=== PATIENT | male | born 1940 | race Caucasian/White ===

== ENCOUNTER 2018-06-12 03:00 | Inpatient (IN) | payer MEDICARE, BC ==
[2018-06-12] MEDS ORDERED: DOPamine-D5W 1.6 MG/ML 250 ML (04:12)
[2018-06-12] MEDS: NORepinephrine 8MG/250 ML (PMX 250 ML IV (04:28)
[2018-06-12] MEDS: DOPamine-D5W 1.6 MG/ML 250 ML IV ×2 (04:29→08:18)
[2018-06-12] MEDS ORDERED: SOD CHLORIDE 0.9% 250 ML IV (04:30)
[2018-06-12] MEDS: NA BICARBONATE 8.4% 50 ML SYG IV (04:32)
[2018-06-12] MEDS: SOD CHLORIDE 0.9% 1,000 ML IV ×3 (04:48→06:58)
[2018-06-12 05:13] LABS: AADO2 Arterial 426.9 mmHg (7.0-24.0); Allen Test A; Arterial Base Excess -8.4 mmol/L (-3.0-3); Arterial Blood Gas Oxygen Sat 98.9 mmHG (95.0-100.0); Arterial COHb 0.3 % (0.0-3.0); Arterial Fraction of Oxyhgb 98.4 % (93.0-99.0); Arterial HCO3 21.3 mmol/L (22.0-26.0); Arterial MetHb 0.2 % (0.0-1.5); Arterial Total Hemglobin 9.6 g/dl (12.0-18.0); Arterial pCO2 69.2 mmhg (35-45); MODE VENT - AC; Site Left Radial
[2018-06-12] MEDS: SODIUM BICARBONATE (IV ADD) 100 MEQ in SOD CHLORIDE 0.45% 1,000 ML IV (05:19)
[2018-06-12 05:40] LABS: WHITE BLOOD COUNT 7.7 10^3/ul (4.8-10.8)
[2018-06-12 05:40] LABS: ABNORMAL IP MESSAGE 1; HEMATOCRIT 27.6 % (42.0-52.0); HEMOGLOBIN 8.2 g/dl (14.0-18.0); MEAN CORPUSCULAR HEMOGLOBIN 32.8 pg (29.0-33.0); MEAN CORPUSCULAR HGB CONC 29.7 g/dl (32.0-37.0); MEAN CORPUSCULAR VOLUME 110.4 fl (82.0-101.0); MEAN PLATELET VOLUME 12.4 fl (7.4-10.4); NUCLEATED RED BLOOD CELLS% 2.3 /100WBC (0.0-0.0); PLATELET COUNT 110 10^3/UL (140-415); POSITIVE DIFF @See below; RED CELL DISTRIBUTION WIDTH 24.3 % (11.5-14.5)
[2018-06-12 05:43] LABS: ADD MAN DIFF? YES
[2018-06-12 05:52] LABS: AMMONIA 367 umol/l (9-30)
[2018-06-12] MEDS: VASOPRESSIN 60 UNIT in DEXTROSE 5% 57 ML IV (06:01)
[2018-06-12 06:02] LABS: LACTIC ACID 12.6 mmol/L (0.5-2.0)
[2018-06-12] MEDS ORDERED: CA CHLORIDE 10% 10 ML SYRINGE (07:00)
[2018-06-12] MEDS ORDERED: EPINEPHrine 0.1 MG/ML SYG (07:00)
[2018-06-12] MEDS ORDERED: NORepinephrine 8MG/250 ML BAG (07:00)
[2018-06-12] MEDS ORDERED: NA BICARBONATE 8.4% 50 ML SYG (07:00)
[2018-06-12 07:10] LABS: ALANINE AMINOTRANSFERASE 909 IU/L (13-69); ALBUMIN 2.1 g/dl (3.3-4.9); ALBUMIN/GLOBULIN RATIO 0.65; ALKALINE PHOSPHATASE 156 IU/L (42-121); ANION GAP 29 (8-16); BILIRUBIN,INDIRECT 0.5 mg/dl (0-1.1); BILIRUBIN,TOTAL 0.5 mg/dl (0.2-1.3); BLOOD UREA NITROGEN 113 mg/dl (7-20); CALCIUM 8.7 mg/dl (8.4-10.2); CARBON DIOXIDE 20 mmol/L (21-31); CHLORIDE 99 mmol/L (97-110); CREATININE 5.23 mg/dl (0.61-1.24); GLUCOSE 131 mg/dl (70-220); SODIUM 142 mmol/L (135-144); TOTAL PROTEIN 5.3 g/dl (6.1-8.1)
[2018-06-12 07:13] LABS: POTASSIUM 5.6 mmol/L (3.5-5.1)
[2018-06-12 07:35] LABS: ANISOCYTOSIS 2+ (0-0); BAND NEUTROPHILS #M 2.9 10^3/ul (0.0-0.6); BAND NEUTROPHILS % (M) 38 % (0-4); BASOPHILS % (M) 1 % (0-2); BURR CELLS 2+ (0-0); EOSINOPHILS % (M) 3 % (0-7); GIANT THROMBO% (M) 7 % (0-0); LYMPHOCYTES #M 2.4 10^3/ul (0.8-2.9); LYMPHOCYTES % (M) 32 % (15-51); MONOCYTE #M 0.2 10^3/ul (0.3-0.9); MONOCYTES % (M) 3 % (0-11); MYELOCYTES #M 0.2 10^3/ul (0.0-0.0); MYELOCYTES % (M) 3 % (0-0); PLATELET ESTIMATE DECREASED; POIKILOCYTOSIS 2+ (0-0); POLYCHROMASIA 2+ (0-0); SEG NEUT #M 1.8 10^3/ul (1.6-7.5); SEGMENTED NEUTROPHILS (M) % 20 % (39-77); SMUDGE%M 5 % (0-0); SPHEROCYTES 1+ (0-0)
[2018-06-12 07:39] LABS: ASPARTATE AMINO TRANSFERASE 2317 IU/L (15-46)
[2018-06-12 09:20] LABS: AADO2 Arterial 576.7 mmHg (7.0-24.0); Allen Test ACCEPTAB; Arterial Base Excess -16.7 mmol/L (-3.0-3); Arterial Blood Gas Oxygen Sat 89.6 mmHG (95.0-100.0); Arterial COHb 0.5 % (0.0-3.0); Arterial Fraction of Oxyhgb 88.9 % (93.0-99.0); Arterial HCO3 13.3 mmol/L (22.0-26.0); Arterial MetHb 0.3 % (0.0-1.5); Arterial Total Hemglobin 9.8 g/dl (12.0-18.0); Arterial pCO2 49.9 mmhg (35-45); Blood Gas Low PEEP Setting 0 cmH2O; MODE VENT - AC; Site Right Radial
[2018-06-12] MEDS: LEVOFLOXACIN 750MG/D5W (PMX) 150 ML IVPB (10:13)
[2018-06-12] MEDS ORDERED: morphine (DRIP) 100 MG/100 ML 100 ML IV (11:30)
== END 2018-06-12 12:08 | disposition expired | DRG 871 ==
LOC: ICU 03:00
PROC: 5A1935Z Respiratory Ventilation, Less than 24 Consecutive Hours (ICD-10-PCS; principal; 2018-06-12)
DX: A41.9 Sepsis, unspecified organism (principal); N18.6 End stage renal disease; R65.21 Severe sepsis with septic shock; G92 Toxic encephalopathy; J96.91 Respiratory failure, unspecified with hypoxia; J18.9 Pneumonia, unspecified organism; Z99.11 Dependence on respirator [ventilator] status; E87.2 Acidosis; N17.9 Acute kidney failure, unspecified; I12.0 Hypertensive chronic kidney disease with stage 5 chronic kidney disease or end stage renal disease; D64.9 Anemia, unspecified; D69.6 Thrombocytopenia, unspecified; R09.02 Hypoxemia; Z99.2 Dependence on renal dialysis; J44.9 Chronic obstructive pulmonary disease, unspecified; E87.5 Hyperkalemia; E83.89 Other disorders of mineral metabolism; R74.0 Nonspecific elevation of levels of transaminase and lactic acid dehydrogenase [LDH]; R13.10 Dysphagia, unspecified; Z93.1 Gastrostomy status; N40.0 Benign prostatic hyperplasia without lower urinary tract symptoms; I35.0 Nonrheumatic aortic (valve) stenosis; I48.91 Unspecified atrial fibrillation; E11.22 Type 2 diabetes mellitus with diabetic chronic kidney disease; Z51.5 Encounter for palliative care; Z93.0 Tracheostomy status
CPT/HCPCS: 36600; 71045; 80053; 82140; 82803; 83605; 85025; 87081; 92950; 94002